=== PATIENT | male | born 1965 | race Caucasian/White ===

== ENCOUNTER → 2022-11-12 09:00 | Outpatient (CLI) | payer OTHER, SELFPAY ==
[2022-11-12 09:57] LABS: COVID19 -Nasal RAPID Negative (Negative)
== END ==
PROVIDERS: PCP Family Medicine; Referring Provider Orthopaedic Surgery; Visit Provider Orthopaedic Surgery
DX: Z20.822 Contact with and (suspected) exposure to COVID-19 (principal)
CPT/HCPCS: 87635; C9803

== ENCOUNTER 2022-11-14 05:52 | Day surgery (SDC) | payer OTHER, SELFPAY ==
[2022-11-04 09:46] VITALS: BMI 39.3
[2022-11-14] VITALS (10 sets, daily range): BP systolic 106–146; BP diastolic 59–82; PULSE 74–92; RESP 15–19; TEMP 36.4–36.8; O2SAT 92–99; BMI 38.6
--- NOTE | 2022-11-14 | DI.RAD.S_ITS ---
PROCEDURE: XR SHOULDER LT 1V INDICATIONS: total shoulder left TECHNIQUE: 1 views of the shoulder were acquired. COMPARISON: None. FINDINGS: Bones: Patient is status post left shoulder arthroplasty. Shoulder alignment is anatomic. No fractures or dislocations. No suspicious bony lesions. Visualized ribs appear intact. Soft tissues: Expected postsurgical changes are seen in anterolateral shoulder soft tissue. IMPRESSION: Postop changes from left shoulder arthroplasty with anatomic shoulder alignment. Dictated by: Beto Diez M.D. on 11/14/2022 at 12:57 Approved by: Bteo Diez M.D. on 11/14/2022 at 12:58
[2022-11-14] MEDS: ACETAMINOPHEN 325 MG TABLET 975 MG PO (07:12)
[2022-11-14] MEDS: PREGABALIN 75 MG CAPSULE PO (07:13)
[2022-11-14] MEDS: CELECOXIB 200 MG CAPSULE PO (07:13)
[2022-11-14] MEDS: LACTATED RINGERS 1,000 ML 84 ML IV ×2 (07:15→08:58)
--- NOTE | 2022-11-14 07:27 | SUR.PREOP ---
Nerve block preformed by Dr Ohara. Pt remained stable throughout procedure. See anesthesia documentation.
--- NOTE | 2022-11-14 07:28 | PM.PREOP ---
Pre-operative Note Interval Note History & Physical reviewed/Exam performed by Physician: Yes Changes to H&P: No
[2022-11-14] MEDS: CEFAZOLIN 3 GM IN 0.9 % NACL 3 GM/100 ML PLAST..BAG IV (08:05)
[2022-11-14] MEDS: TRANEXAMIC ACID 1,000 MG VIAL 2000 MG INJ ×2 (08:10→10:26)
--- NOTE | 2022-11-14 08:46 | SUR.OPER ---
Beach chair with Maquet shoulder positioner. Lower body on padded OR bed. Head in foam padded head cradle, secured with straps. Non-operative arm secured <90 degrees abduction. 2 Pillow under knees. Gel pad under bilateral heels. Safety belt at thigh. Cloth tape over blanket over lower legs.
[2022-11-14] MEDS: BUPIVACAINE 0.5% W/ EPI (PF) 30 ML VIAL INJ (08:58)
[2022-11-14] MEDS: HYDROGEN PEROXIDE 473 ML SOLUTION 30 ML TOP (10:01)
[2022-11-14] MEDS: OXYCODONE IR 5 MG TABLET PO ×2 (11:35→12:09)
[2022-11-14] MEDS: hydrOXYzine 50 MG/ML INJ 25 MG IM (12:09)
[2022-11-14] MEDS: ONDANSETRON 4 MG/2 ML INJ IV (12:09)
--- NOTE | 2022-11-14 12:36 | SUR.PHASEII ---
Patient and under the impression that he would be staying overnight in the hospital; Dr Miller preferring to send patient home if possible. Patient has pain 4/10 after being medicated. at bedside with patient and Dr Miller at bedside speaking to patient and regarding discharge/admit plan. Notified [employer] Flanger of possible admit.
--- NOTE | 2022-11-14 12:49 | P.OP_ITS ---
Operative Date/Time/Diagnoses Date of procedure: 11/14/22 Time of procedure: 12:50 Pre-op diagnosis: Left shoulder osteoarthritis Post-op diagnosis: same Procedure & Clinicians Procedure: Left shoulder total shoulder arthroplasty Open biceps tenodesis Same procedure as scheduled: Yes Indications: Indications: Patient has osteoarthritis of left shoulder. They have undergone extensive conservative management as noted in previous notes and has failed. In order to relieve pain, and improve range of motion, we discussed operative treatment with total shoulder arthroplasty. Risks and benefits of the procedure were explained including the risks of infection, damage to internal structures, bleeding, need for revision surgery, failure of implants, and complications due to anesthesia. The patient expressed understanding with these risks and wished to go forward with surgery. Surgeon: [facility] Administrator: Caro Patrick Yes if Unassisted: No Anesthesia Type: General Operative Notes Findings: Findings: Osteoarthritis of the glenoid and humeral head with osteophytes as noted on preoperative imaging and under direct visualization Closure Type: primary Specimen(s): none sent Prosthetic devices, grafts, tissues, transplants, or devices: Tornier Simpliciti Nucleus size 3 STB humeral head 56mm x 21mmthick Cortiloc Pegged glenoid L40 Procedure in detail: Operative note: Patient was seen in the preoperative holding unit. The correct [] shoulder was identified and marked with my initials. Again we discussed the risks and benefits of surgery and they wished to go forward with surgery. The patient was brought back to the operating room and placed supine on the operating table. He underwent smooth endotracheal intubation. All prominences were padded and they were placed into the beach chair position. Intravenous antibiotics were given. The left shoulder was then prepped with the standard sterile preparation and draping. A time-out was then performed in my initials were again identified on the correct shoulder. 1 g of IV tranexamic acid was given. A standard deltopectoral incision was made. Skin flaps were made. The vein was identified and retracted laterally. This was protected throughout the remainder of the case. Sharp dissection was made along the deltoid, subacromial and subcoracoid space to release adhesions. The conjoined tendon was identified and the axillary nerve was palpated and continuous using the tug test. It was protected throughout the remainder of the case. A brown retractor was placed underneath the deltoid muscle and a dare retractor underneath the conjoint tendon. The anterior circumflex artery and associated veins on the lower border of the subscapularis were identified and tied off using 0-Vicryl. The biceps tendon was identified in the bicipital groove. This was released from its sheath, and taken from its origin on the glenoid and tied into the pectoralis tendon for a solid tenodesis. We then began a subscapularis peel. The subscapularis was tagged with an Ethibond suture. A 360 degree circumferential release of the subscapularis was performed with protection of the axillary nerve. The coracohumeral ligament was released at the base of the coracoid. The coracoacromial ligament was left intact. The shoulder was then dislocated. Osteophytes were removed using combination of rongeur and osteotome. The rotator cuff was noted to be intact. Using an oscillating saw a conservative humeral head cut was made in the anatomic [place] version. The central drill using the guide was made followed by central Reamer. A trial base implant was placed in a neck protector on top of that. Attention was then turned to the glenoid. After retracting the humeral head posteriorly a 360 degree circumferential release was performed of the capsule with protection of the axillary nerve. The labrum was then released starting at the biceps anchor and going 360?. A center guide pin was then placed using the guide, followed by Reamer. After adequate cartilage was removed, the poly guide was placed and 3 4 drill holes were made including a central drill hole. Cement was mixed on the back table and the drill holes were dried. A trial was placed and noted to have a good fit. When cement was ready, the holes were pressurized and the polyethylene glenoid was placed. I then held the implant with my thumb until the cement dried. We then returned to the humerus. Carefully avoiding the glenoid. The final humeral head implant trial was placed noted to have good continuity with the bone and rotator cuff. Before placing the final implant, drill holes were made in the bicipital groove for the subscapularis repair, and sutures were passed through the drill holes. The final implant was then placed in noted to have good purchase. The shoulder was reduced. Before closing the subscapularis, the shoulder was thoroughly irrigated with 1 L of dilute Betadine saline solution. The interval was then closed with an 0-Vicryl. The subscapularis was then repaired using a racking hitch sutures. The deltopectoral interval was then closed with Ethibond. The skin was closed with PDS and mireya followed by Aquacel dressing. Patient was awoken from anesthesia and brought back to the postoperative recovery unit without issue. They were placed into a sling. This is to remain on for 6 weeks. Assisting participation: This operation could not have been safely performed (without compromising the technical results or length of the procedure) without the assistance of a skilled surgical scheduler. The surgical scheduler was medically necessary for proper positioning, retraction and manipulation of instruments, proper exposure, graft prep, and manipulation of tissue Complications: none Post-operative Condition: stable Disposition: PACU Plan for aftercare: Postoperative instructions: Sling to remain on for 6 weeks. No external rotation past neutral for 6 weeks. Okay for him to come off her shower. Okay to shower over the Aquacel dressing. If any water gets underneath the dressing, remove the dressing. First postoperative visit in 2 weeks.
== END 2022-11-14 12:54 | disposition home or self-care (01) ==
LOC: OR 05:53 → AC 06:15
PROVIDERS: PCP Family Medicine; Referring Provider Orthopaedic Surgery; Visit Provider Orthopaedic Surgery
PROC: (CPT 23472; principal; 2022-11-14 07:45)
DX: M19.012 Primary osteoarthritis, left shoulder (principal); M25.712 Osteophyte, left shoulder; M75.02 Adhesive capsulitis of left shoulder
CPT/HCPCS: 23472; 23430; 64450; 73020; C1776; J0330; J0690; J2250; J2405; J2704; J3010; J3410

== ENCOUNTER 2025-05-07 13:27 | Emergency (ER) | payer BC, SELFPAY ==
[2025-05-07] VITALS (14 sets, daily range): BP systolic 98–142; BP diastolic 53–78; PULSE 90–109; RESP 16–40; TEMP 38–39.3; O2SAT 94–100; BMI 38.5
--- NOTE | 2025-05-07 13:56 | EKG_ITS ---
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
[2025-05-07 14:52] LABS: Add Manual Diff / Slide Review NO; Basophils Absolute Auto 100 /uL (0-100); Basophils Percent Auto 1.4 % (0-2); Eosinophils Absolute Auto 0 /uL (0-450); Eosinophils Percent Auto 0.3 % (2-4); Hematocrit 37.3 % (41-53); Hemoglobin 12.6 g/dL (13.5-17.5); Lymphocytes Absolute Auto 300 /uL (1100-4500); Lymphocytes Percent Auto 3.5 % (25-40); Mean Corpuscular HGB Conc 33.9 % (30-36); Mean Corpuscular Hemoglobin 30.7 PG (26-34); Mean Corpuscular Volume 90.6 fL (80-100); Monocytes Absolute Auto 400 /uL (0-900); Monocytes Percent Auto 4.1 % (3-14); Neutrophils Absolute Auto 8700 /uL (1500-7000); Neutrophils Percent Auto 90.7 % (50-75); Platelet Count 200 X10^3/uL (150-400); Red Blood Cell Count 4.12 X10^6/uL (4.5-5.9); Red Cell Distribution Width 13.6 % (11.6-14.8); White Blood Cell Count 9.6 X10^3/uL (4.5-11.0)
--- NOTE | 2025-05-07 15:01 | ED_ITS ---
HPI - Abdominal Pain General Chief Complaint: Abdominal Pain Stated Complaint: Severe px in lower abdominal area;cold and shaking Time Seen by Provider: 05/07/25 14:42 Source: patient, RN notes reviewed and old records reviewed Mode of arrival: Family Vehicle Limitations: no limitations History of Present Illness HPI narrative: 60-year-old male history of back pain, diverticulosis with complaint of bilateral lower quadrant abdominal pain for several days that improved today around noon. Patient then developed fevers, chills and shaking rigors. Patient states pain still improved. He denies any chest pain or shortness of breath. Denies any cold cough or congestion symptoms. States some occasional nausea, no vomiting. States chronically has diarrhea we will sometimes have a small amount of bright red blood states he was had multiple colonoscopies for this in the past. Patient states no new changes to his bowel movements. He noticed a little bit of dysuria in the last day or 2 but no urgency or sense of frequency. Denies any rash or skin changes. Patient states he takes testosterone and gabapentin daily. Had a back surgery in the past and shoulder surgery. He states he had a small surgery for anal fissure but no other abdominal surgeries. Reports an allergy or adverse reaction to Ambien. Uses smokeless tobacco, denies any regular alcohol, no recreational drugs. Last colonoscopy was in the last [address] Carrion is his primary care physician. Related Data Home Medications ?Medication ?Instructions ?Recorded ?Confirmed ibuprofen 200 mg tablet 400 mg PO DAILY PRN Pain 05/2111/14/22 Previous Rx's ?Medication ?Instructions ?Recorded oxycodone 5 mg tablet 5 mg PO Q4H PRN Mild or mode rate 11/14/22 pain #60 tabs amoxicillin 875 mg-potassium 1 tab PO BID #20 tabs 07/24 clavulanate 125 mg tablet Allergies Allergy/AdvReac Type Severity Reaction Status Date / Time zolpidem (From Ambien) AdvReac Severe Sleep Verified 05/07/25 13:43 walking and driving Review of Systems Review of Systems ROS Unobtainable: All systems reviewed & are unremarkable except as noted in HPI and below Patient History Medical History COVID-19 virus infection (2020) Diverticulosis MIGUEL on CPAP Surgical History Hx of colonoscopy Hx of hemorrhoidectomy Hx of arthroscopy of left knee Hx of arthroscopy of right knee Hx of rhinoplasty (~2019) History of ear surgery (~2019) Social History household members: spouse Smoking Status: Former smoker alcohol intake: former Smoking Status: Former smoker tobacco type: cigarettes alcohol intake frequency: a few times a month Exam Narrative Exam Narrative: GENERAL: Alert and oriented x three, male, warm to the touch in [id number] distress. HEENT: Head normocephalic, atraumatic, EOMI, pupils reactive, face symmetric, moist mucous membranes NECK: Supple, full range of motion CARDIOVASCULAR: Regular rate and rhythm without murmurs, rubs or gallops. RESPIRATORY: Breath sounds equal bilaterally, no wheezes rales or rhonchi. ABDOMEN: Soft, patient was tender bilateral lower abdomen but significantly more tender on the left than the right. Normoactive bowel sounds all 4 quadrants. No guarding or rebound, rigidity, no mass : No CVA tenderness bilaterally EXTREMITIES: Normal range of motion, no clubbing or edema. Neurovascularly intact NEUROLOGICAL: Cranial nerves II through XII grossly intact. Moving all extremities SKIN: Warm, dry, no petechiae, no rashes or lesions. Initial Vital Signs Initial Vital Signs: Vital Signs Temperature 100.4 F H 05/07/25 13:42 Pulse Rate 109 H 05/07/25 13:42 Respiratory Rate 22 05/07/25 13:42 Blood Pressure 139/78 05/07/25 13:42 Pulse Oximetry 95 05/07/25 13:42 Oxygen Delivery Method Room Air 05/07/25 13:42 Course Orders Ordered: ED Orders 05/07/25 13:47 EKG-12 Lead Stat 05/07/25 14:42 Complete Blood Count AUTO DIFF Stat Comprehensive Metabolic Panel Stat Lactate (Lactic Acid) Stat Lipase Stat Procalcitonin Stat 05/07/25 15:07 Blood Culture Stat 05/07/25 15:18 CT abdomen pelvis w con Stat 05/07/25 15:20 Urinalysis and Microscopic Stat Discontinued Medications Acetaminophen (Acetaminophen 325 Mg Tablet) 975 mg PO NOW ONE Stop: 05/07/25 14:43 Last Admin: 05/07/25 15:17 Dose: 975 mg Documented By: DIVINE Amoxicillin/Clavulanate Potassium (Amoxicillin/Clav 875/125 Mg) 1 tab PO NOW ONE Stop: 05/07/25 16:13 Last Admin: 05/07/25 16:21 Dose: 1 tab Documented By: RAQUEL Sodium Chloride (Normal Saline 0.9%) 1,000 mls @ 1,000 mls/hr IV BOLUS ONE Stop: 05/07/25 15:42 Last Infusion: 05/07/25 17:11 Dose: Infused Documented By: Infusion: 05/07/25 15:42 Dose: 1,000 mls/hr Documented By: Infusion: 05/07/25 15:29 Dose: 0 mls/hr Documented By: Admin: 05/07/25 15:18 Dose: 1,000 mls/hr Documented By: DIVINE Ondansetron HCl (Ondansetron 4 Mg/2 Ml Inj) 4 mg IV NOW PRN PRN Reason: Nausea And Vomiting Last Admin: 05/07/25 15:41 Dose: 4 mg Documented By: RAQUEL Ondansetron HCl (Ondansetron 4 Mg Odt) 4 mg PO NOW PRN PRN Reason: Nausea And Vomiting Vital Signs Vital signs: Vital Signs - 8 hr 05/07/25 13:42 05/07/25 13:58 05/07/25 13:59 Temperature 100.4 F H Pulse Rate 109 H 100 H Respiratory Rate 22 Blood Pressure 139/78 142/63 H Pulse Oximetry 95 96 Oxygen Delivery Method Room Air 05/07/25 13:59 05/07/25 14:00 05/07/25 14:30 Temperature Pulse Rate 100 H 103 H Respiratory Rate Blood Pressure 124/60 Pulse Oximetry 96 95 Oxygen Delivery Method 05/07/25 14:30 05/07/25 15:00 05/07/25 15:08 Temperature 102.8 F H Pulse Rate 102 H 100 H Respiratory Rate 25 H 28 H Blood Pressure 118/60 Pulse Oximetry 99 97 Oxygen Delivery Method 05/07/25 15:08 05/07/25 15:17 05/07/25 15:37 Temperature 100.9 F H Pulse Rate 99 H 103 H Respiratory Rate 28 H 40 H Blood Pressure Pulse Oximetry 98 97 Oxygen Delivery Method 05/07/25 16:00 05/07/25 16:18 05/07/25 16:18 Temperature Pulse Rate 98 H 95 H Respiratory Rate 27 H 35 H Blood Pressure 98/53 L Pulse Oximetry 95 94 Oxygen Delivery Method 05/07/25 16:30 05/07/25 16:30 05/07/25 17:00 Temperature 102.2 F H Pulse Rate 94 H Respiratory Rate 30 H Blood Pressure 110/54 L 101/53 L Pulse Oximetry 95 Oxygen Delivery Method 05/07/25 17:00 05/07/25 17:52 Temperature 101.2 F H Pulse Rate 90 90 Respiratory Rate 24 16 Blood Pressure 101/62 Pulse Oximetry 96 100 Oxygen Delivery Method Room Air MDM - Abdominal Pain Lab Data 05/07/25 14:42 05/07/25 14:42 Labs: Lab Results 05/07/25 05/07/25 Range/Units 14:42 15:20 WBC 9.6 (4.5-11.0) X10^3/uL RBC 4.12 L (4.5-5.9) X10^6/uL Hgb 12.6 L (13.5-17.5) g/dL Hct 37.3 L (41-53) % MCV 90.6 (80-100) fL MCH 30.7 (26-34) PG MCHC 33.9 (30-36) % RDW 13.6 (11.6-14.8) % Plt Count 200 (150-400) X10^3/uL Neut % (Auto) 90.7 H (50-75) % Lymph % (Auto) 3.5 L (25-40) % [place] % (Auto) 4.1 (3-14) % Eos % (Auto) 0.3 L (2-4) % Baso % (Auto) 1.4 (0-2) % Neut # (Auto) 8700 H (7924-0841) /uL Lymph # (Auto) 300 L (9500-0790) /uL [place] # (Auto) 400 (0-900) /uL Eos # (Auto) 0 (0-450) /uL Baso # (Auto) 100 (0-100) /uL Sodium 135 L (137-145) mmol/L Potassium 4.5 (3.4-5.1) mmol/L Chloride 101 (98-107) mmol/L Carbon Dioxide 26 (22-32) mmol/L BUN 13 (9-20) mg/dL Creatinine 0.94 (0.66-1.25) mg/dL Estimated GFR > 60 (>60) mL/min BUN/Creatinine Ratio 13.8 (6-22) Glucose 100 H (70-99) mg/dL Lactate 1.3 (0.7-2.1) mmol/L Calcium 9.0 (8.4-10.2) mg/dL Total Bilirubin 1.2 (0.2-1.3) mg/dL AST 41 (17-59) IU/L ALT 28 (<50) IU/L Alkaline Phosphatase 51 (38-126) U/L Total Protein 7.3 (6.3-8.2) g/dL Albumin 4.2 (3.5-5.0) g/dL Globulin 3.1 (1.7-4.1) g/dL Albumin/Globulin Ratio 1.4 (1.0-2.8) Lipase 84 (23-300) U/L Procalcitonin 0.223 (<0.5) ng/mL Urine Color Yellow Urine Appearance Clear Urine pH 6.0 (4.5-8.0) Ur Specific [place] 1.025 (1.000-1.035) Urine Protein 2+ H (Negative) Urine Glucose (UA) Negative (Negative) g/dL Urine Ketones Negative (NEGATIVE) Urine Occult Blood 3+ H (Negative) Urine Nitrate Negative (Negative) Urine Bilirubin Negative (NEGATIVE) Urine Urobilinogen 0.2 (0.2) E.U./dL Ur Leukocyte Esterase Negative (NEGATIVE) Urine RBC 10-30/hpf H (0-5/HPF) Urine WBC None seen (0-5/HPF) Ur Squamous Epith Cells None seen (0-5/HPF) Urine Bacteria Few (2-10) H (None) Urine Yeast 1-5/hpf H (None) Ur Culture Indicated? Cult not indicated Vol Urine Centrifuged 10ml (spun) ECG Data Attestation: I personally reviewed and interpreted this ECG as follows: Prior ECG tracings: available for review Interpretation: sinus tachycardia rate of 101 RI 196 QRS of 90 QTC of 425, no acute ST elevation, right atrial enlargement. Nonspecific change patient was prior EKG from 10/27/2022 shows sinus rhythm. [facility] Narrative Medical decision making narrative: Sinus tachycardia on EKG nonspecific change Labs show white count 9.6 hemoglobin of 12.6, platelets of 200, chemistries shows sodium 135 otherwise normal electrolytes BUN creatinine glucose of 100 lactate 1.3, bilirubin, AST ALT alk-phos and lipase are normal. Procalcitonin is 0.223. Urine positive for protein 3+ blood, 10-30 RBCs, few bacteria 1-[address] abdomen pelvis shows sigmoid diverticulitis without free air or organized abscess, no obstruction. Liver diffusely decreased attenuation without focal mass lesion. Multiple diverticula from sigmoid colon proximal sigmoid wall thickening and pericolonic inflammatory change noted. No evidence organized abscess. Patient received fluids, acetaminophen, Zofran. Augmentin oral. 60-year-old male with complaint of bilateral lower abdominal discomfort some dysuria in his quite tender left lower quadrant compared to the right has been differentials potential diverticulitis as patient states pain resolved abruptly then developed fevers and chills concern for potential abscess or perforation, UTI/pyelonephritis, colitis or appendicitis are all within the differential as well. Patient is febrile, tachycardic, no hypotension normal white count, lactate, procalcitonin he was normal. Patient was febrile slightly tachycardic but her labs do not support sepsis. Workup shows diverticulitis but no perforation or abscess or other acute change. Discussed with the patient he has been a little bit improved reviewed his findings has had multiple cystoscopies for hematuria symptoms seem most consistent with a diverticulitis he was quite tender on exam. We will plan to treat with Augmentin which has a little bit of coverage for both. Patient was given oral antibiotics here with oral challenge and ambulation trial. Patient was requesting to go home, he feels much better reviewed all findings and return precautions. Patient was currently sitting in the seat while his is sitting in the gurney and he states he was ready to return home. Discharge Plan Departure Patient Disposition: Home Clinical Impression: Diverticulitis Instructions: DI for Diverticulitis Activity Restrictions/Additional Instructions: Your workup today shows diverticulitis but no signs of perforation or abscess. Take oral antibiotics until completed. You should have improvement over the next 24-48 hours with oral antibiotics. Prescription sent to [facility] I would take acetaminophen and/or ibuprofen as needed for fevers for the next 24 hours. Please return if you have persistent fevers, worsening abdominal back or flank pain, vomiting, new changes to changes to stools, lightheadedness or passing out or other new or concerning changes. Prescriptions: New amoxicillin-pot clavulanate 875-125 mg tablet 1 tab PO BID Qty: 20 0RF No Action ibuprofen 200 mg Tablet 400 mg PO DAILY PRN (Reason: Pain) oxycodone 5 mg Tablet 5 mg PO Q4H PRN (Reason: Mild or moderate pain) Qty: 60 0RF Referrals: Bill Obregon MD [Primary Care Provider, Family Practice] Stand Alone Forms: Patient Portal/API
[2025-05-07 15:07] LABS: Alanine Aminotransferase 28 IU/L (<50); Albumin 4.2 g/dL (3.5-5.0); Albumin Globulin Ratio 1.4 (1.0-2.8); Alkaline Phosphatase 51 U/L (38-126); BUN Creatinine Ratio 13.8 (6-22); Bilirubin Total 1.2 mg/dL (0.2-1.3); Blood Urea Nitrogen 13 mg/dL (9-20); Carbon Dioxide 26 mmol/L (22-32); Chloride 101 mmol/L (98-107); Estimated Glomerular Filt Rate > 60 mL/min (>60); Globulin 3.1 g/dL (1.7-4.1); Glucose 100 mg/dL (70-99); Lipase 84 U/L (23-300); Sodium 135 mmol/L (137-145); Total Protein 7.3 g/dL (6.3-8.2)
[2025-05-07 15:08] LABS: Lactate (Lactic Acid) 1.3 mmol/L (0.7-2.1)
[2025-05-07 15:11] LABS: Aspartate Aminotransferase 41 IU/L (17-59); HEMOLYSIS 69 (0-50); Potassium 4.5 mmol/L (3.4-5.1)
[2025-05-07] MEDS: ACETAMINOPHEN 325 MG TABLET 975 MG PO (15:17)
[2025-05-07] MEDS: SODIUM CHLORIDE 0.9% 1,000 ML 1000 ML IV (15:18)
--- NOTE | 2025-05-07 15:18 | DI.CT.S_ITS ---
PROCEDURE: CT ABDOMEN PELVIS W CON INDICATIONS: lower abd pain, LLQ>RLQ on exam, fevers, rigors. TECHNIQUE: After the administration of intravenous contrast, axial sections acquired from the lung bases to the pubic symphysis. Coronal and sagittal reformats were performed. For radiation dose reduction, the following was used: automated exposure control, adjustment of mA and/or kV according to patient size. COMPARISON: None. FINDINGS: Image quality: Diagnostic. Lower Chest: No significant findings. ABDOMEN: Liver: The liver is diffusely decreased in attenuation without focal mass lesion. Gallbladder: No radiopaque gallstones or wall thickening. Biliary ducts: No biliary dilation. Pancreas: No ductal dilation. Spleen: Size is within normal limits. Adrenal Glands: No adrenal nodules. Kidneys and Ureters: No hydronephrosis. No solid mass. No complex renal cystic lesion which requires follow up. Stomach and Bowel: Multiple diverticula arise from the sigmoid colon. Proximal sigmoid wall thickening and pericolonic inflammatory change noted. No evidence of organized abscess Peritoneum: No abnormal intraperitoneal fluid. No free air. Ventral Wall: No significant ventral hernia. Abdominal Nodes: No retroperitoneal or mesenteric adenopathy by size criteria. Vessels: Aorta and inferior vena cava are normal in size. PELVIS: Pelvic Organs: Unremarkable. Bladder: No bladder wall thickening, accounting for underdistention. Pelvic Nodes: No enlarged lymph nodes. Miscellaneous: No inguinal hernias are seen. Bones: No aggressive osseous abnormality. IMPRESSION: Sigmoid diverticulitis without free air or organized abscess. No obstruction. Approved by: Guru Branham M.D. on 05/07/2025 at 14:58
[2025-05-07 15:24] LABS: Procalcitonin 0.223 ng/mL (<0.5)
--- NOTE | 2025-05-07 15:29 | PC.NURSE ---
Pt goes to use the bathroom then to CT. IV fluids are paused and unhooked while patient in bathroom.
[2025-05-07] MEDS: ONDANSETRON 4 MG/2 ML INJ IV (15:41)
[2025-05-07 15:52] LABS: Appearance Urine UA CLEAR; Bilirubin Urine UA NEGATIVE (NEGATIVE); Color Urine UA YELLOW; Glucose Urine UA NEGATIVE (Negative); Ketones Urine UA NEGATIVE (NEGATIVE); Leukocyte Esterase Urine UA NEGATIVE (NEGATIVE); Nitrite Urine UA NEGATIVE (Negative); Occult Blood Urine UA 3+ (Negative); Protein Urine UA 2+ (Negative); Specific Gravity Urine UA 1.025 (1.000-1.035); Urobilinogen Urine UA 0.2 E.U./dL (0.2)
[2025-05-07 16:05] LABS: Urine Volume 10mL (spun)
[2025-05-07 16:06] LABS: Bacteria Urine Few (2-10); Culture Indicated Urine Cult Not Indicated; RBC Urine 10-30/HPF (0-5/HPF); Squamous Epithelial Cell Urine None Seen (0-5/HPF); WBC Urine None Seen (0-5/HPF)
--- NOTE | 2025-05-07 16:13 | PC.NURSE ---
Pt laying on stretcher, RA, NAD, A&Ox4, breathing even/equal/unlabored at this time. Call light within reach, no needs at this time. Family at bedside
[2025-05-07] MEDS: AMOXICILLIN/CLAV 875/125 MG 1 TAB PO (16:21)
== END 2025-05-07 17:53 | disposition home or self-care (01) ==
PROVIDERS: Emergency Provider Emergency Medicine; PCP Family Medicine
DX: K57.92 Diverticulitis of intestine, part unspecified, without perforation or abscess without bleeding (principal); R30.0 Dysuria; R10.32 Left lower quadrant pain
CPT/HCPCS: 36415; 74177; 80053; 81001; 83605; 83690; 84145; 85025; 87040; 93005; 96361; 96374; 99284; J2405; Q9967